=== PATIENT | female | born 1950 | race Caucasian/White ===

== ENCOUNTER 2023-08-17 22:48 | Emergency (ER) | payer OTHER, SELFPAY ==
--- NOTE | ~2023-08-17 | XR_ITS ---
XR shoulder RT min 2V Ordering provider: Igor Torres MD History: . fall, pain . Comparison: None. FINDINGS: BONES: Fracture in the proximal metaphysis of the right humerus is noted with displacement of the distal fra gment posteriorly. JOINT SPACES: Osteoarthritic changes of the acromioclavicular joint. The humeral head is directed inf eriorly compared to the glenoid cavity. No inferior displacement is seen. SOFT TISSUES: Normal. IMPRESSION: Fracture proximal metaphysis of the right humerus with posterior displacement of the distal fragment. . Consider MRI of the shoulder if there is concern for soft tissue internal derangement. Reviewed, dictated and finalized at location A. IMPRESSION: Fracture proximal metaphysis of the right humerus with posterior displacement o f the distal fragment.. Consider MRI of the shoulder if there is concern for soft tissue internal deran gement.
[2023-08-17 22:51] VITALS: BP 132/62; PULSE 121; RESP 22; TEMP 37.4; O2SAT 100
[2023-08-17 23:43] VITALS: BP 135/76; PULSE 115; RESP 16; O2SAT 99
--- NOTE | 2023-08-17 23:49 | PC.NURSE ---
Notified EDP ARIAS Masterson that patient was in pain. Per Candelaria give patient 4mg Zofran and 4mg Morphine both IVP.
[2023-08-18] MEDS: MORPHINE SULFATE (*CRX) 4 MG/ML INJ IV PUSH (00:01)
[2023-08-18] MEDS: ONDANSETRON INJ 4 MG/2 ML VIAL IV PUSH (00:02)
--- NOTE | 2023-08-18 00:42 | ED.GENADULT ---
HPI - General Adult General Chief complaint: Extremity Injury, Upper Stated complaint: fall, shoulder pain Time Seen by Provider: 08/18/23 00:24 History of Present Illness HPI narrative: Patient 72-year-old female presents emergency department with chief complaint right shoulder pain. Patient reports that she slipped in the shower at a hotel landed on her right shoulder and reports severe pain reports that she has difficulty moving her arm due to the pain Related Data Allergies Allergy/AdvReac Type Severity Reaction Status Date / Time No Known Allergies Allergy Verified 08/17/23 23:47 Review of Systems Review of Systems: A 10 system review of systems was completed on the patient and is negative except for what is stated in the HPI. Nursing and ancillary documentation was reviewed. Exam Narrative: GENERAL: Well-appearing, well-nourished, and in mild acute pain distress. HEAD: Normocephalic, atraumatic. EYES: PERRLA and EOMI. ENT: Nares clear, no rhinorrhea or epistaxis. Mucous membranes moist. NECK: Supple. CHEST: Clear to auscultation. No respiratory distress. HEART: Regular rate and rhythm. No murmur heard. Normal peripheral pulses. ABDOMEN: Soft, nontender, nondistended, normal active bowel sounds. EXTREMITIES: Normal range of motion distal to the injury tenderness to palpation of the right shoulder. No edema. SKIN: Warm, dry, no rash. NEURO: No focal deficits. Alert and oriented x3. PSYCH: Normal mood and affect. Course Vital Signs Vital signs: Vital Signs Temperature 37.4 C 08/17/23 22:51 Pulse Rate 121 H 08/17/23 22:51 Respiratory Rate 22 H 08/17/23 22:51 Blood Pressure 132/62 08/17/23 22:51 Pulse Oximetry 100 08/17/23 22:51 Oxygen Delivery Room Air 08/17/23 22:51 Temperature 37.4 C 08/17/23 22:51 Pulse Rate 115 H 08/17/23 23:43 Respiratory Rate 16 08/17/23 23:43 Blood Pressure 135/76 08/17/23 23:43 Pulse Oximetry 99 08/17/23 23:43 Oxygen Delivery Room Air 08/17/23 22:51 Medical Decision Making [facility] Narrative Medical decision making narrative: Differential diagnosis includes fracture, dislocation Plain film x-rays were obtained of the low right shoulder that showed evidence for proximal humerus fracture The patient was placed in a sling pain control was achieved in the emergency department In discussion with the patient she is from [facility] in [place] and plans to follow-up with orthopedics in her home city Vital Signs Vital Signs: Vital Signs Temperature 37.4 C 08/17/23 22:51 Pulse Rate 121 H 08/17/23 22:51 Respiratory Rate 22 H 08/17/23 22:51 Blood Pressure 132/62 08/17/23 22:51 Pulse Oximetry 100 08/17/23 22:51 Oxygen Delivery Room Air 08/17/23 22:51 Temperature 37.4 C 08/17/23 22:51 Pulse Rate 115 H 08/17/23 23:43 Respiratory Rate 16 08/17/23 23:43 Blood Pressure 135/76 08/17/23 23:43 Pulse Oximetry 99 08/17/23 23:43 Oxygen Delivery Room Air 08/17/23 22:51 Discharge Plan Discharge Clinical Impression: Fracture of proximal end of humerus Qualifiers: Encounter type: initial encounter Fracture type: closed Fracture alignment: displaced Laterality: right Patient Disposition: Home, Self-Care Condition: Stable Instructions: Antibiotic Form, Arm Fracture in Adults (ED), How to Use a Sling (ED) Prescriptions: New hydrocodone-acetaminophen 5-325 mg tablet 1 tablet PO Q6H PRN (Reason: pain) 3 Days Qty: 12 0RF Follow-up/Referrals: UNKNOWN,DOCTOR [Primary Care Provider] -
[2023-08-18] MEDS: HYDROcodone/acetaminophen (*CRX) 5-325 MG TABLET 1 TAB PO (00:54)
== END 2023-08-18 01:21 | disposition home or self-care (01) ==
PROVIDERS: Emergency Provider Emergency Medicine
DX: S42.201A Unspecified fracture of upper end of right humerus, initial encounter for closed fracture (principal); W18.2XXA Fall in (into) shower or empty bathtub, initial encounter
CPT/HCPCS: 73030; 96374; 96375; 99284; A4565; A9270; J2270; J2405